=== PATIENT | female | born 1995 | race Caucasian/White ===

== ENCOUNTER 2017-06-20 11:38 | Day surgery (SDC) | payer OTHER ==
[~2017-06-20] VITALS: Ht 154.9 cm; Wt 59.0 kg
[~2017-06-20 11:38] MED LIST: BLISOVI FE 1-21 EACH PO; OMEPRAZOLE40 M1 PO; VENTOLIN HFA18 GM IH
[2017-06-20 12:21] VITALS: BP 114/60
[2017-06-20] MEDS ORDERED: COLACE100 MG PO (13:52)
[2017-06-20] MEDS ORDERED: PERCOCET 5/31 TABLET PO (13:52)
[2017-06-20 15:00] VITALS: BP 109/57
[2017-06-20 16:09] VITALS: BP 129/60
== END 2017-06-20 16:05 | disposition home or self-care (01) ==
LOC: SDC 11:38
DX: K64.4 Residual hemorrhoidal skin tags (principal); K62.89 Other specified diseases of anus and rectum; K21.9 Gastro-esophageal reflux disease without esophagitis; J45.909 Unspecified asthma, uncomplicated
CPT/HCPCS: 88304; 94640; J0131; J0330; J0585; J1100; J1885; J2250; J2405; J3010; S0030